=== PATIENT | female | born 1965 | race Caucasian/White ===

== ENCOUNTER 2017-03-11 17:26 | Inpatient (IN) | payer OTHER ==
[~2017-03-11] VITALS: Ht 152.4 cm; Wt 83.0 kg
[~2017-03-11 17:26] MED LIST: BAY PO; COL100 PO; FIORICET1 TAB PO; PRI20 PO; PRILOSEC40 MG PO; PYRIDOXINE50 MG PO; ROB500 PO; ZOC20 PO
--- NOTE | 2017-03-11 20:57 | NUR ---
PT PRESENTS TO ED [facility] C/C LUQ PAIN X 2 DAY. PT STATES LUQ PAIN 10/10 PRESSURE LIKE IN QUALITY REPROTS DIARREHA 4 EPISODES OF EMESIS , 6 EPISODES OF DIARREHA PT MONICA CONSTIPATION, DENIES FEVER, DENIES FAMILY MEMBERS BEING SICK. PT REPORTS DECREASE IN APPETITE AND THAT SHE CANNOT HOLD FOOD DOWN. PT REPROTS DIZZINESS AND PALPITATIONS BUT DNEIES ANY CP SYNCOPE OR SOB. PT REPROTS HEADACHE IN SARAY TEMPLES 9/10 PRESSYURE LIKE IN QUALITY SINCE THIS AM. PT STABLE. RESP E/U SEPAKING IN FULL CLEAR SENTENCES. PT STABLE. NAD CALL [facility] N[facility]INI [facility]. WILL CONTINUE TO MONITOR.
[2017-03-11 21:36] LABS: BASOPHIL % 0.2 % (0-2); PLATELET COUNT 214 x10^3mcL (130-400); RED CELL DISTRIBUTION WIDTH 13.3 % (11.5-14.5)
[2017-03-11 21:44] LABS: CALCIUM 7.7 mg/dL (8.5-10.1); CARBON DIOXIDE 26.4 mmol/L (21-32); CHLORIDE SERUM 105 mmol/L (98-107); CREATININE SERUM 0.6 mg/dL (0.6-1.0); GFR1 > 60 mL/min; GLUCOSE SERUM 106 mg/dL (74-106); POTASSIUM SERUM 3.6 mmol/L (3.5-5.1); SODIUM SERUM 138 mmol/L (136-145)
[2017-03-11 21:50] LABS: ALBUMIN 3.5 g/dL (3.4-5.0); ALKALINE PHOSPHATASE 64 U/L (46-116); ALT/SGPT 19 U/L (14-59); AST/SGOT 14 U/L (15-37); BILIRUBIN TOTAL 0.4 mg/dL (0.20-1.00); LIPASE 83 IU/L (73-393); TOTAL PROTEIN, SERUM 6.8 g/dL (6.4-8.2)
[2017-03-11] MEDS ORDERED: DICLOFENAC SODI50 M2 PO (23:05)
--- NOTE | 2017-03-11 23:18 | NUR ---
PT NOW REPORTING EPIGASTRIC PAIN AND URGE TO VOMIT. MADE AWARE.
--- NOTE | 2017-03-11 23:29 | NUR ---
CALLED REPROT TO JANNETH PEDRO TO ASSUME CARE OF PT./
--- NOTE | 2017-03-11 23:30 | NUR ---
CALLED REPROT TO JANNETH PEDRO TO ASUSME CARE OF PT.
--- NOTE | 2017-03-12 00:21 | NUR ---
RECEIVED PT FORM ED, PT C/O ABD PAIN 05/16. ORIENTED PT TO ROOM. WILL MEDICATE PER EMAR. WILL CONTINUE TO MONITOR.
[2017-03-12 00:34] VITALS: BP 138/67
--- NOTE | 2017-03-12 00:44 | NUR ---
PT C/O 05/16 ABD PAIN, DR TERESA TSAI. WILL CONTINUE TO MONITOR.
[2017-03-12 02:25] LABS: T3 TOTAL 0.97 ng/mL
[2017-03-12 02:47] LABS: CHOLESTEROL/HDL RATIO 3.9; FREE T4 1.1 ng/dL (0.76-1.46); FREE THYROXINE INDEX 2.9 ug/dL (1.4-4.5); PHOSPHOROUS 2.9 mg/dL (2.5-4.9); T4(THYROXINE) 8.8 ug/dL (4.7-13.3)
--- NOTE | 2017-03-12 05:41 | NUR ---
PT SLEPT PERIODICALLY THROUGHOUT NIGHT, NO ACUTE DISTRESS. ALL NEEDS MET AND ATTENDED TO. NO SIGNIFICANT CHANGES. IV PATENT AND INTACT. MEDICATED PAIN PER EMAR. BED IN LOWEST POSITION, SIDE RAILS UP X2, SCDS IN PLACE, CALL LIGHT WITHIN REACH. WILL ENDORSE CARE TO ONCOMING NURSE.
[2017-03-12 05:55] VITALS: BP 101/63
--- NOTE | 2017-03-12 08:00 | NUR ---
DR. SERNA AT BEDSIDE TALKING TO THE PATIENT
--- NOTE | 2017-03-12 09:49 | NUR ---
PT ON BED, AWAKE, ALERT, AND ORIENTED. HAS NO COMPLAINT OF PAIN, SOB, OR DIZZINESS. RESPONDS WELL TO QUESTION AND ANSWER. CLEAR SARAY LUNG FIELD, SYMMETRICAL CHEST EXPANSION AND UNLABORED. HYPOACTIVE BOWEL SOUNDS NOTED, ROUND AND NON DISTENDED. SKIN INTACT. SIDE RAILS UP, CALL LIGHT WITHIN REACH, WILL CONTINUE TO MONITOR
--- NOTE | 2017-03-12 09:51 | NUR ---
PT UP AND AMBUALTING TO THE BATHROOM WITHOUT ASSIST.
--- NOTE | 2017-03-12 10:10 | NUR ---
PT TRANSFERRED TO O.R. FOR HER PROCEDURE
--- NOTE | 2017-03-12 12:07 | NUR ---
RECIEVED REPORT FROM LUKE PEDRO IN OUTPATIENT
--- NOTE | 2017-03-12 12:20 | NUR ---
PT RETURNED TO 2N. V/S STABLE. DRESSING IS CDI ON THE ABDOMEN
[2017-03-12 12:30] VITALS: BP 110/56
--- NOTE | 2017-03-12 14:01 | NUR ---
PT ON BED, ASLEEP. WILL CONTINUE TO MONITOR
--- NOTE | 2017-03-12 16:41 | NUR ---
PT AMBULATED TO THE BATHROOM WITH MINIMAL ASSIST. PRN PAIN MED GIVEN COVERAGE
--- NOTE | 2017-03-12 17:58 | NUR ---
pt on bed, awake, alert, and oriented. pt's accucheck showed 111. no coverage needed. will continue to monitor
[2017-03-12 18:28] VITALS: BP 124/57
--- NOTE | 2017-03-12 20:00 | NUR ---
AWAKE AND VERBALLY RESPONSIVE. ABLE TO MAKE NEEDS KNOWN. DENIES ANY PAIN/DISCOMFORT. FAMILY AT BEDSIDE VERY SUPPORTIVE OF PATIENT'S PALN OF CARE. WILL CONTINUE TO MONITOR.
[2017-03-12 20:35] VITALS: BP 114/62
--- NOTE | 2017-03-13 00:10 | NUR ---
EYES CLOSED, NO FACIAL GRIAMCING NOTED. RESPIRATION EVEN AND UNLABORED. TOLERATED CLEAR LIQUID DIET. NO NAUSEA/VOMTING NOTED. WILL CONTINUE TO MONITOR.
[2017-03-13 05:26] VITALS: BP 107/67
--- NOTE | 2017-03-13 05:45 | NUR ---
BLOOD SUGAR CJECKED 105MG/DL. ORAL FLUIDS TOLERATED WELL NO NUASEA/VOMITNG NOTED. DUE MEDICATION GIVEN AND WELL TOLERATED. KEPT CLEAN AND DRY. ALL NEEDS ATTENDED.
[2017-03-13 07:30] LABS: BASOPHIL % 0.2 % (0-2); PLATELET COUNT 191 x10^3mcL (130-400); RED CELL DISTRIBUTION WIDTH 13.7 % (11.5-14.5)
[2017-03-13 07:51] LABS: CALCIUM 7.4 mg/dL (8.5-10.1); CARBON DIOXIDE 22.4 mmol/L (21-32); CHLORIDE SERUM 107 mmol/L (98-107); CREATININE SERUM 0.5 mg/dL (0.6-1.0); GFR1 > 60 mL/min; GLUCOSE SERUM 91 mg/dL (74-106); MAGNESIUM 1.9 mg/dL (1.8-2.4); PHOSPHOROUS 2.5 mg/dL (2.5-4.9); POTASSIUM SERUM 3.2 mmol/L (3.5-5.1); SODIUM SERUM 139 mmol/L (136-145)
--- NOTE | 2017-03-13 09:25 | NUR ---
DRESSING IS CDI
--- NOTE | 2017-03-13 09:25 | NUR ---
PT ON BED, AWAKE, ALERT, AND ORIENTED. HAS NO COMPLAINT OF PAIN, SOB, OR DIZZINESS. RESPONDS WELL TO QUESTION AND ANSWER. CLEAR SARAY LUNG FIELD, SYMMETRICAL CHEST EXPANSION AND UNLABORED. ACTIVE BOWEL SOUNDS NOTED, ROUND AND NON DISTENDED. SKIN INTACT. SIDE RAILS UP, CALL LIGHT WITHIN REACH, WILL CONTINUE TO MONITOR
[2017-03-13 09:54] VITALS: BP 119/61
--- NOTE | 2017-03-13 12:00 | NUR ---
PT'S ACCUCHECK SHOWED 103. NO COVERAGE NEEDED
[2017-03-13 13:48] VITALS: BP 126/64
--- NOTE | 2017-03-13 14:00 | NUR ---
PT ON BED ASLEEP. WILL CONTINUE TO MONITOR
[2017-03-13 17:24] VITALS: BP 105/62
--- NOTE | 2017-03-13 17:52 | NUR ---
PT'S ACCUCHECK SHOWED 103. NO COVERAGE NEEDED
--- NOTE | 2017-03-13 19:53 | NUR ---
AWAKE AND VERBALLY RESPONSIVE. ABLE TO MAKE NEEDS KNOWN. DENIES ANY PAIN/DISCOMFORT AT THIS TIME. ABDOMINAL DRESSING INTACT AND DRY. NO ACTIVE BLEEDING NOTED. FAMILY AT BEDSIDE VERY SUPPORTIVE OF PATIEMNT'S PLAN OF CARE.
[2017-03-13 21:14] VITALS: BP 115/64
--- NOTE | 2017-03-13 23:10 | NUR ---
MORPHINE 2MG GIVEN IVP FOR SEVERE ABDOMIANL PAIN ON SCALE 8/10. ABLE TO REPOSITION SELF IN BED. PLACED CALL LIGHT WITHIN REACH. WILL CONTINUE TO MONITOR.
--- NOTE | 2017-03-14 00:10 | NUR ---
EYES CLOSED, NO FACIAL GRIMACING NOTED. RESPIRATION EVEN AND UNLABORED. NO S/S OF ACUTE DISTRESS. PAIN LEVEL 0/10.
[2017-03-14 05:39] VITALS: BP 115/56
--- NOTE | 2017-03-14 05:47 | NUR ---
BLOOD SUGAR CHECKED 96MG/DL. NO S/S OF GLAYCEMIC REACTION. TOLERATED FLUIDS ORALLY. NO S/S OF PAIN/DISCOMFORT AT THIS TIME. ALL NEEDS ATTENDED.
[2017-03-14 06:29] LABS: BASOPHIL % 0.3 % (0-2); PLATELET COUNT 189 x10^3mcL (130-400); RED CELL DISTRIBUTION WIDTH 13.9 % (11.5-14.5)
[2017-03-14 06:48] LABS: CALCIUM 7.8 mg/dL (8.5-10.1); CARBON DIOXIDE 25.1 mmol/L (21-32); CHLORIDE SERUM 105 mmol/L (98-107); CREATININE SERUM 0.5 mg/dL (0.6-1.0); GFR1 > 60 mL/min; GLUCOSE SERUM 88 mg/dL (74-106); MAGNESIUM 1.8 mg/dL (1.8-2.4); PHOSPHOROUS 2.9 mg/dL (2.5-4.9); POTASSIUM SERUM 3.5 mmol/L (3.5-5.1); SODIUM SERUM 139 mmol/L (136-145)
[2017-03-14 09:41] VITALS: BP 128/71
--- NOTE | 2017-03-14 12:00 | NUR ---
PT'S ACCUCHECK SHOWED 134. NO COVERAGE NEEDED
--- NOTE | 2017-03-14 14:24 | NUR ---
PT ON BED, ASLEEP. WILL CONTINUE TO MONITOR
[2017-03-14 17:25] VITALS: BP 106/62
--- NOTE | 2017-03-14 17:56 | NUR ---
PT'S ACCUCHECK SHOWED 102. NO COVERAGE NEEDED
--- NOTE | 2017-03-14 19:23 | NUR ---
SHIFT REASSESSMENT DONE.PATIENT EATING DINNER AT START OF THE SHIFT.BREATHING EASY.SKIN,ABD DRESSING DRY AND INTACT.NS AT 50 CC/ HOUR.IV SITE GOOD.PATIENT PASSING GAS,NO BM SINCE 03/11.VOIDING,GEN WEAKNESS,ASSIST PRN.FAMILY AT BEDSIDE,VISITING,SUPPORTIVE OF CARE.PAIN MED PRN.CALL LITE IN REACH.
[2017-03-14 20:59] VITALS: BP 113/68
--- NOTE | 2017-03-14 21:51 | NUR ---
PM MEDS GIVEN,SWALLOWS WELL.NS AT 50 CC/ HOUR.
--- NOTE | 2017-03-15 | NUR ---
CHECKED AT INTERVALS,SLEEPING COMFORTABLY.
[2017-03-15 05:12] VITALS: BP 124/63
[2017-03-15 05:50] LABS: BASOPHIL % 0.3 % (0-2); PLATELET COUNT 213 x10^3mcL (130-400); RED CELL DISTRIBUTION WIDTH 13.8 % (11.5-14.5)
[2017-03-15 05:53] LABS: CALCIUM 8.4 mg/dL (8.5-10.1); CARBON DIOXIDE 25.2 mmol/L (21-32); CHLORIDE SERUM 107 mmol/L (98-107); CREATININE SERUM 0.6 mg/dL (0.6-1.0); GFR1 > 60 mL/min; GLUCOSE SERUM 94 mg/dL (74-106); POTASSIUM SERUM 3.9 mmol/L (3.5-5.1); SODIUM SERUM 142 mmol/L (136-145)
--- NOTE | 2017-03-15 06:07 | NUR ---
SLEPT WELL DURING THE NOC,NO PAIN MED GIVEN.AMBULATIRY RESTROOM,VOIDING QS.WILL ENDORSE TO NEXT SHIFT.
[2017-03-15] MEDS ORDERED: COLACE100 MG PO (09:17)
[2017-03-15] MEDS ORDERED: NORCO1 TA2 PO (09:27)
[2017-03-15 09:46] VITALS: BP 125/63
[2017-03-15 10:30] VITALS: BP 125/63
[2017-03-15 13:19] VITALS: Ht 152.4 cm; Wt 83.0 kg
--- NOTE | 2017-03-15 13:31 | NUR ---
PERFORMED DRESSING CHANGE TO ABDOMINAL INCISION SP OPEN UMBILICAL HERNIA REPAIR. INCISION APPEARS TO BED HEALING WELL. NO APPARENT SIGNS OF DRAINAGE, SWELLING, OR REDNESS. PT TOLERATED DRESSING CHANGE WELL. DEMONSTRATED THE PROPER WAY TO CLEAN AREA. GAVE PT SUPPLIES TO CHANGE DRESSING IN THE EVENT THEY ARE SOILED OR NEED CHANGING. CLEANED SITE WITH NS AND APPLIED BOARDER DRESSING WHICH IS CDI. WENT OVER DISCHARGE INSTRUCTIONS AND PT TEACHING WITH PT. IV ACCESS WAS REMOVED. PT TOLERATED WELL. NO APPARENT SIGNS OF ACUTE DISTRESS NOTED AT THIS TIME.
--- NOTE | 2017-03-15 13:54 | NUR ---
PT WAS DISCHARGED. DENIES PAIN UPON DEPARTURE. PT WAS ESCORTED VIA WHEELCHAIR, DOWNSTAIRS TO DISCHARGE OFFICE. ID BAND WAS REMOVED AND DISCARDED IN SHREDDER
== END 2017-03-15 13:50 | disposition home or self-care (01) | DRG 228 ==
LOC: ED 17:26 → DU 23:03 → MU 03-14 11:57
PROVIDERS: Emergency Medicine; Surgery; ADMIT Family Medicine
PROC: 0WUF0JZ Supplement Abdominal Wall with Synthetic Substitute, Open Approach (ICD-10-PCS; principal; 2017-03-12 12:00)
DX: K42.0 Umbilical hernia with obstruction, without gangrene (principal); E83.51 Hypocalcemia; R73.03 Prediabetes; D64.9 Anemia, unspecified; E78.5 Hyperlipidemia, unspecified; I25.10 Atherosclerotic heart disease of native coronary artery without angina pectoris; I25.2 Old myocardial infarction; Z79.82 Long term (current) use of aspirin
CPT/HCPCS: 82962; 83880; 84439; C1781; J0330; J0500; J0690; J1170; J2175; J2250; J2270; J2405; J2704; J2710; J3010; J3490; J7030; J7120; Q0092

== ENCOUNTER 2018-02-09 20:54 | Emergency (ER) | payer OTHER ==
[~2018-02-09] VITALS: Ht 152.4 cm; Wt 91.6 kg
[~2018-02-09 20:54] MED LIST changes: +COLACE100 MG PO; +DICLOFENAC SODI50 M2 PO; +NORCO1 TA2 PO
[2018-02-09 21:45] LABS: BASOPHIL % 0.2 % (0-2); PLATELET COUNT 270 x10^3mcL (130-400); RED CELL DISTRIBUTION WIDTH 13.8 % (11.5-14.5)
[2018-02-09 22:04] LABS: CALCIUM 8.5 mg/dL (8.5-10.1); CHLORIDE SERUM 105 mmol/L (98-107); CREATININE SERUM 0.6 mg/dL (0.6-1.0); GFR1 > 60 mL/min; GLUCOSE SERUM 102 mg/dL (74-106); POTASSIUM SERUM 3.1 mmol/L (3.5-5.1); SODIUM SERUM 141 mmol/L (136-145)
[2018-02-09 22:09] LABS: ALBUMIN 3.3 g/dL (3.4-5.0); ALKALINE PHOSPHATASE 89 U/L (46-116); ALT/SGPT 25 U/L (14-59); AST/SGOT 19 U/L (15-37); BILIRUBIN TOTAL 0.23 mg/dL (0.20-1.00); LIPASE 110 IU/L (73-393)
[2018-02-09 22:56] VITALS: BP 135/82
== END 2018-02-09 22:56 | disposition home or self-care (01) ==
LOC: ED 20:54
PROVIDERS: Emergency Medicine
DX: E87.6 Hypokalemia (principal); R11.10 Vomiting, unspecified; R19.7 Diarrhea, unspecified; Z90.710 Acquired absence of both cervix and uterus; Z90.49 Acquired absence of other specified parts of digestive tract
CPT/HCPCS: J2270; J2405; J7030

== ENCOUNTER 2018-03-05 13:48 | Emergency (ER) | payer OTHER ==
[~2018-03-05] VITALS: Ht 154.9 cm; Wt 92.5 kg
[2018-03-05 14:00] VITALS: Ht 154.9 cm; Wt 92.5 kg
[2018-03-05 16:16] VITALS: BP 144/82
== END 2018-03-05 16:16 | disposition home or self-care (01) ==
LOC: ED 13:48
DX: S05.01XA Injury of conjunctiva and corneal abrasion without foreign body, right eye, initial encounter (principal); E78.00 Pure hypercholesterolemia, unspecified; E78.5 Hyperlipidemia, unspecified; Z90.710 Acquired absence of both cervix and uterus; Y93.E6 Activity, residential relocation; Y99.8 Other external cause status; Y92.89 Other specified places as the place of occurrence of the external cause

== ENCOUNTER 2018-05-29 22:36 | Emergency (ER) | payer OTHER ==
[2018-05-29 22:43] VITALS: Ht 154.9 cm
[2018-05-30 00:13] VITALS: BP 150/79
== END 2018-05-30 00:13 | disposition home or self-care (01) ==
LOC: ED 22:36
DX: N89.8 Other specified noninflammatory disorders of vagina (principal); R03.0 Elevated blood-pressure reading, without diagnosis of hypertension; E78.00 Pure hypercholesterolemia, unspecified; E78.5 Hyperlipidemia, unspecified; Z87.19 Personal history of other diseases of the digestive system; Z90.710 Acquired absence of both cervix and uterus
CPT/HCPCS: 87491; 87591

== ENCOUNTER 2018-06-07 00:47 | Emergency (ER) | payer OTHER ==
[~2018-06-07] VITALS: Ht 152.4 cm; Wt 94.3 kg
[2018-06-07 01:01] VITALS: Ht 152.4 cm; Wt 94.3 kg
[2018-06-07 03:14] LABS: BASOPHIL % 1.3 % (0-2); PLATELET COUNT 283 x10^3mcL (130-400); RED CELL DISTRIBUTION WIDTH 12.8 % (11.5-14.5)
[2018-06-07 03:51] LABS: CALCIUM 8.1 mg/dL (8.5-10.1); CHLORIDE SERUM 106 mmol/L (98-107); CREATININE SERUM 0.5 mg/dL (0.6-1.0); GFR1 > 60 mL/min; GLUCOSE SERUM 99 mg/dL (74-106); POTASSIUM SERUM 3.6 mmol/L (3.5-5.1); SODIUM SERUM 138 mmol/L (136-145)
[2018-06-07 03:55] LABS: ALBUMIN 3.4 g/dL (3.4-5.0); ALKALINE PHOSPHATASE 66 U/L (46-116); ALT/SGPT 24 U/L (14-59); AST/SGOT 14 U/L (15-37); BILIRUBIN TOTAL 0.4 mg/dL (0.20-1.00); LIPASE 88 IU/L (73-393); TOTAL PROTEIN, SERUM 6.9 g/dL (6.4-8.2)
[2018-06-07 04:59] LABS: UA SPECIFIC GRAVITY 1.015 (1.005-1.035); microscopic required? YES; urine erythrocyte NEGATIVE (NEGATIVE)
[2018-06-07 06:50] VITALS: BP 123/66
== END 2018-06-07 07:02 | disposition home or self-care (01) ==
LOC: ED 00:47
PROVIDERS: Emergency Medicine
DX: N39.0 Urinary tract infection, site not specified (principal); E78.00 Pure hypercholesterolemia, unspecified; Z90.89 Acquired absence of other organs; Z90.49 Acquired absence of other specified parts of digestive tract; E78.5 Hyperlipidemia, unspecified; Z90.710 Acquired absence of both cervix and uterus
CPT/HCPCS: 87491; 87591; J1885; J2270; J2405; J7030

== ENCOUNTER 2018-09-26 14:16 | Emergency (ER) | payer OTHER ==
[~2018-09-26] VITALS: Ht 152.4 cm; Wt 91.2 kg
[2018-09-26 14:39] VITALS: Ht 152.4 cm; Wt 91.2 kg
[2018-09-26 17:31] LABS: UA SPECIFIC GRAVITY >=1.030 (1.005-1.035); microscopic required? YES; urine erythrocyte 3+ (NEGATIVE)
[2018-09-26 18:47] VITALS: BP 148/81
== END 2018-09-26 18:47 | disposition home or self-care (01) ==
LOC: ED 14:16
PROVIDERS: Emergency Medicine
DX: N39.0 Urinary tract infection, site not specified (principal); N83.202 Unspecified ovarian cyst, left side; Z90.710 Acquired absence of both cervix and uterus
CPT/HCPCS: J1885; Q0162

== ENCOUNTER 2019-03-13 09:01 | Emergency (ER) | payer OTHER ==
[~2019-03-13] VITALS: Ht 152.4 cm; Wt 89.4 kg
[2019-03-13 09:15] VITALS: Ht 152.4 cm; Wt 89.4 kg
[2019-03-13 10:36] LABS: CALCIUM 9.2 mg/dL (8.5-10.1); CARBON DIOXIDE 28.6 mmol/L (21-32); CHLORIDE SERUM 105 mmol/L (98-107); CREATININE SERUM 0.5 mg/dL (0.6-1.0); GFR1 > 60 mL/min; GLUCOSE SERUM 101 mg/dL (74-106); POTASSIUM SERUM 4.6 mmol/L (3.5-5.1); SODIUM SERUM 139 mmol/L (136-145)
[2019-03-13 10:41] LABS: ALBUMIN 3.5 g/dL (3.4-5.0); ALKALINE PHOSPHATASE 73 U/L (46-116); ALT/SGPT 20 U/L (14-59); AST/SGOT 10 U/L (15-37); BILIRUBIN TOTAL 0.3 mg/dL (0.20-1.00); LIPASE 86 IU/L (73-393); TOTAL PROTEIN, SERUM 7.1 g/dL (6.4-8.2)
[2019-03-13 10:44] LABS: BASOPHIL % 0.5 % (0-2); PLATELET COUNT 263 x10^3mcL (130-400); RED CELL DISTRIBUTION WIDTH 13.7 % (11.5-14.5)
[2019-03-13 13:12] VITALS: BP 148/76
== END 2019-03-13 13:13 | disposition home or self-care (01) ==
LOC: ED 09:01
PROVIDERS: Emergency Medicine
DX: R10.814 Left lower quadrant abdominal tenderness (principal); E78.5 Hyperlipidemia, unspecified; Z90.49 Acquired absence of other specified parts of digestive tract; Z90.710 Acquired absence of both cervix and uterus; Z90.89 Acquired absence of other organs; Z98.890 Other specified postprocedural states
CPT/HCPCS: 36415; J1885